=== PATIENT | male | born 1970 | race Caucasian/White ===

== ENCOUNTER 2022-09-12 07:54 | Outpatient (CLI) | payer OTHER, SELFPAY | END 2022-09-12 07:55 | disposition home or self-care (01) | PROVIDERS: Visit Provider Family Medicine | DX: I87.311 Chronic venous hypertension (idiopathic) with ulcer of right lower extremity (principal); L97.212 Non-pressure chronic ulcer of right calf with fat layer exposed; E11.622 Type 2 diabetes mellitus with other skin ulcer; L98.8 Other specified disorders of the skin and subcutaneous tissue; L30.4 Erythema intertrigo; E66.01 Morbid (severe) obesity due to excess calories; Z68.34 Body mass index [BMI] 34.0-34.9, adult | CPT/HCPCS: 97597; 97598; 99203 ==

== ENCOUNTER 2022-10-05 07:50 | Outpatient (CLI) | payer OTHER, SELFPAY | END 2022-10-05 07:51 | disposition home or self-care (01) | PROVIDERS: Visit Provider Nurse Practitioner Family | DX: I87.311 Chronic venous hypertension (idiopathic) with ulcer of right lower extremity (principal); E11.622 Type 2 diabetes mellitus with other skin ulcer; L97.212 Non-pressure chronic ulcer of right calf with fat layer exposed; L30.4 Erythema intertrigo; I89.0 Lymphedema, not elsewhere classified; D64.9 Anemia, unspecified; M62.81 Muscle weakness (generalized) | CPT/HCPCS: 99215 ==